=== PATIENT | male | born 1935 | race Caucasian/White ===

== ENCOUNTER → 2018-06-25 | Outpatient (CLI) | payer MEDICARE ==
[~2018-06-25] MED LIST: ASPI81CH PO; BUPR150ER PO; ESCI10 PO; FLONASE ALLERG9.9 ML NS; LISI20 PO; RANI150 PO; Viagra100 MG PO
== END | disposition home or self-care (01) ==
LOC: PLD 15:52 → LAB SHORT 15:52
DX: D48.5 Neoplasm of uncertain behavior of skin (principal)
CPT/HCPCS: 88305

== ENCOUNTER 2018-11-22 11:51 | Day surgery (SDC) | payer MEDICARE ==
[~2018-11-22] VITALS: Ht 173 cm; Wt 80.2 kg
[~2018-11-22 11:51] MED LIST changes: +ACET325 PO; +ALCIS59.15 ML TOP; +ASCO500 PO; +CALCIUM 600 +1 EA11 PO; +ERGO400 PO; +GABA100 PO; +Hair, Skin & N1 EACH PO; +OMEPRAZOLE20 MG PO
--- NOTE | 2018-11-22 12:44 | NUR ---
Patient confirms NPO status and agrees with scheduled surgery. History, Chart, Medications and Allergies reviewed before start of procedure. Patient reports completing Chlorhexadine shower X2 prior to admission to hospital.Lungs clear T/O to Auscultation. Surgical site prepped with 2% Chlorhexidine cloth wipe.
--- NOTE | 2018-11-22 18:36 | NUR ---
SHIFT SUMMARY PATIENT DENIES PAIN. PATIENT ABLE TO STAND AND TRANSFER TO RECLINER. TAKING PO W/O C/O. DENIES NEED TO VOID AT THIS TIME. DRESSING D&I. SENSATION NEAR NORMAL PER PATIENT. SON AND DAUGHTER IN ROOM. CONT TO MONITOR.
[2018-11-23 05:30] LABS: BASOPHILS PERCENT AUTO 0 % (0-2); EOSINOPHILS PERCENT AUTO 0 % (0-6); Hematocrit 36.5 % (37.0-53.0); Hemoglobin 11.9 g/dL (13.5-17.5); IMMATURE GRAN ABSOLUTE AUTO 0.02 K/mm3 (0.00-0.10); IMMATURE GRAN PERCENT AUTO 0 % (0-1); LYMPHOCYTES ABSOLUTE AUTO 0.88 K/mm3 (0.84-5.20); LYMPHOCYTES PERCENT AUTO 8 % (21-46); MONOCYTES ABSOLUTE AUTO 0.89 K/mm3 (0.16-1.47); MONOCYTES PERCENT AUTO 8 % (4-13); Mean Corpuscular HGB 31.6 pg (26.0-34.0); Mean Corpuscular HGB Conc 32.6 g/dL (31.5-36.5); Mean Corpuscular Volume 97 fL (80-100); Mean Platelet Volume 9.2 fL (9.1-12.4); NEUTROPHILS ABSOLUTE AUTO 8.77 K/mm3 (1.96-9.15); NEUTROPHILS PERCENT AUTO 83 % (41-73); Platelet Count 294 K/mm3 (150-400); RDW Coefficient Variation 13.4 % (11.7-14.2); RDW Standard Deviation 47.8 fL (35.1-46.3); Red Blood Cell Count 3.77 M/mm3 (4.30-5.90); White Blood Cell Count 10.56 K/mm3 (4.00-11.30)
[2018-11-23 05:57] LABS: Bun/Creatinine Ratio 18.6 (12.0-20.0); Calcium, Blood 8.9 mg/dL (8.5-10.1); Creatinine, Blood 1.4 mg/dL (0.60-1.20); Potassium, Blood 5.5 mmol/L (3.5-5.5)
--- NOTE | 2018-11-23 06:39 | NUR ---
SHIFT SUMMARY LYING IN SEMI FOWLERS WITH EYES OPEN. AMBULATED IN HALLWAY AT START OF SHIFT. RESTED WELL. ABLE TO TOLERATE DIET. MEDICATED FOR BREAKTHROUGH PAIN X1 THIS SHIFT. DRESSING TO RIGHT KNEE IS C/D/I. DENEIS FURTHER NEEDS AT THIS TIME. SAFETY MEASURES IN PLACE. WILL CONTINUE TO MONITOR.
[2018-11-23] MEDS ORDERED: Percocet 5-3251 EACH PO (13:01)
[2018-11-23] MEDS ORDERED: ASPI81CH PO (13:04)
--- NOTE | 2018-11-23 14:35 | NUR ---
PATIENT D/C'D HOME WITH SON AT THIS TIME; BOTH STATE UNDERSTANDING OF MEDS, ACTIVITY, WOUND CARE, OP PT, F/U APPT, ETC. PATIENT STATES PAIN CONTROLLED WITH PO MEDS. TAKING PO. VOIDING. DRESSING C/D/I. NO C/O AT THIS TIME.
== END 2018-11-23 14:36 | disposition home or self-care (01) ==
LOC: ORSCMMR 11:51 → ORD 13:15 → SURS 15:57 → ORSCMMR 11-23 14:36
PROVIDERS: Orthopaedic Surgery
PROC: 0SRC0JA Replacement of Right Knee Joint with Synthetic Substitute, Uncemented, Open Approach (ICD-10-PCS; principal; 2018-11-22 13:15)
DX: M17.11 Unilateral primary osteoarthritis, right knee (principal); I10 Essential (primary) hypertension; Z87.891 Personal history of nicotine dependence; G62.9 Polyneuropathy, unspecified; I25.2 Old myocardial infarction; Z79.899 Other long term (current) drug therapy
CPT/HCPCS: 36415; 73560-RT; 80048; 85025; 86850; 86900; 86901; 88300; 97110; 97116; 97162; 97530; C1776; J0171; J0735; J1100; J1885; J2250; J2370; J2405; J2704; J2795; J3010; J7120

== ENCOUNTER 2020-03-31 06:04 | Day surgery (SDC) | payer MEDICARE ==
[~2020-03-31] VITALS: Ht 172.7 cm; Wt 80.3 kg
[~2020-03-31 06:04] MED LIST changes: +METO25ER PO; +Percocet 5-3251 EACH PO; +Toprol Xl25 MG
--- NOTE | 2020-03-31 06:55 | NUR ---
Ambulatory in Day Surgery Lungs clear T/O to Auscultation. Patient confirms NPO status and agrees with scheduled surgery. TO RESTROOM c STEAGY GAIT, + VOID.
--- NOTE | 2020-03-31 18:32 | NUR ---
SHIFT SUMMARY PT HAS DONE WELL POST OP. UP AMBULATED TO BATHROOM, THEN WORKED WITH THERAPY. EATING, DRINKING, & VOIDING. PAIN WELL CONTROLLED. SURG SITE WNL.
[2020-04-01 04:37] LABS: BASOPHILS ABSOLUTE AUTO 0.01 K/mm3 (0.00-0.23); BASOPHILS PERCENT AUTO 0 % (0-2); EOSINOPHILS PERCENT AUTO 0 % (0-6); Hematocrit 34.1 % (37.0-53.0); Hemoglobin 11.3 g/dL (13.5-17.5); IMMATURE GRAN ABSOLUTE AUTO 0.03 K/mm3 (0.00-0.10); IMMATURE GRAN PERCENT AUTO 0 % (0-1); LYMPHOCYTES ABSOLUTE AUTO 1.27 K/mm3 (0.84-5.20); LYMPHOCYTES PERCENT AUTO 11 % (21-46); MONOCYTES PERCENT AUTO 12 % (4-13); Mean Corpuscular HGB 31.4 pg (26.0-34.0); Mean Corpuscular HGB Conc 33.1 g/dL (31.5-36.5); Mean Corpuscular Volume 95 fL (80-100); Mean Platelet Volume 9.6 fL (9.1-12.4); NEUTROPHILS ABSOLUTE AUTO 8.67 K/mm3 (1.96-9.15); NEUTROPHILS PERCENT AUTO 77 % (41-73); Platelet Count 318 K/mm3 (150-400); RDW Coefficient Variation 13.2 % (11.7-14.2); White Blood Cell Count 11.28 K/mm3 (4.00-11.30)
[2020-04-01 04:54] LABS: Bun/Creatinine Ratio 22.2 (12.0-20.0); Calcium, Blood 9.1 mg/dL (8.5-10.1); Creatinine, Blood 1.44 mg/dL (0.60-1.20); Potassium, Blood 5.3 mmol/L (3.5-5.5)
--- NOTE | 2020-04-01 06:23 | NUR ---
POD 1 S/P L TKA. PT VSS T/O NIGHT. DRESSING CDI, POLAR PACK IN PLACE. PT DENIED N/T, CAP REFILL AND PULSES WNL. PAIN MGD PER EMAR W/REP RELIEF. PT AMB IN HALLS X1, CY WELL. PLAN FOR SON TO COME IN FOR PT THIS AM.
[2020-04-01] MEDS ORDERED: ASPIR 8181 M1 PO (08:08)
[2020-04-01] MEDS ORDERED: Percocet 5-3251 EACH PO (08:09)
--- NOTE | 2020-04-01 11:20 | NUR ---
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 DC INSTRUCTIONS PROVIDED. PT REP UNDERSTANDING THOSE INSTRUCTIONS INCLUDING DRESSING CHANGE ON WEDNESDAYS, WHEN TO CALL THE DR, OKAY TO SHOWER, NO TUB/JACUZZI, SHORT FREQ AMB/ELEVATE BLE AT REST, TCDB & IS. IV DC'D.
--- NOTE | 2020-04-01 12:10 | NUR ---
04/01/20 1210 Bee Brower VERIFICATIONS: EDIT CHART.
== END 2020-04-01 11:10 | disposition home or self-care (01) ==
LOC: ORSCMMR 06:04 → ORD 07:30 → ORSCMMR 07:30 → ORD 09:45 → SURS 10:20 → ORD 10:45 → SURS 04-01 11:10 → ORSCMMR 04-01 11:10
PROVIDERS: Orthopaedic Surgery
PROC: 8E0Y0CZ Robotic Assisted Procedure of Lower Extremity, Open Approach (ICD-10-PCS; principal; 2020-03-31 07:30)
PROC: 0SRD0JA Replacement of Left Knee Joint with Synthetic Substitute, Uncemented, Open Approach (ICD-10-PCS; principal; 2020-03-31 07:30)
DX: M17.12 Unilateral primary osteoarthritis, left knee (principal); K21.9 Gastro-esophageal reflux disease without esophagitis; N18.9 Chronic kidney disease, unspecified; Z79.899 Other long term (current) drug therapy
CPT/HCPCS: 27447; S2900; 36415; 73560-LT; 80048; 85025; 88300; 97110; 97116; 97162; 97530; A9270; C1776; J0171; J0690; J0735; J1100; J1885; J2250; J2405; J2704; J2795; J3010; J3370; J7120

== ENCOUNTER 2020-10-14 07:40 | Day surgery (SDC) | payer MEDICARE ==
[~2020-10-14] VITALS: Ht 172.7 cm; Wt 80.7 kg
[~2020-10-14 07:40] MED LIST changes: +ASPIR 8181 M1 PO; +CYCLOBENZAPRINE5 MG PO; +ERGO50000 PO; +KAPSPARGO SPRIN25 MG PO; +OMEP20ER PO; +Ultram50 MG PO
== END 2020-10-14 09:40 | disposition home or self-care (01) ==
LOC: ORSCSDS 07:40
PROVIDERS: Internal Medicine Gastroenterology
PROC: 0DB48ZX Excision of Esophagogastric Junction, Via Natural or Artificial Opening Endoscopic, Diagnostic (ICD-10-PCS; principal; 2020-10-14 09:00)
PROC: 0DB58ZX Excision of Esophagus, Via Natural or Artificial Opening Endoscopic, Diagnostic (ICD-10-PCS; principal; 2020-10-14 09:00)
DX: R13.10 Dysphagia, unspecified (principal); F32.9 Major depressive disorder, single episode, unspecified; K22.2 Esophageal obstruction; K20.90 Esophagitis, unspecified without bleeding; K44.9 Diaphragmatic hernia without obstruction or gangrene; I10 Essential (primary) hypertension; Z87.891 Personal history of nicotine dependence; Z79.899 Other long term (current) drug therapy
CPT/HCPCS: 88305; C1726; J2704; J7120

== ENCOUNTER → 2022-04-13 | Outpatient (CLI) | payer MEDICARE ==
[~2022-04-13] MED LIST changes: +DOXY100 PO
== END | disposition home or self-care (01) ==
LOC: LAB SHORT 14:11 → LAB 14:11
DX: S90.31XA Contusion of right foot, initial encounter (principal)
CPT/HCPCS: 84550